=== PATIENT | female | born 1980 | race Two or more races ===

== ENCOUNTER 2021-05-06 09:10 | Emergency (ER) | payer MEDICAID, OTHER ==
[~2021-05-06] VITALS: Ht 149.9 cm; Wt 91.2 kg
[2021-05-06 09:24] VITALS: BP 154/87
--- NOTE | 2021-05-06 09:28 | NUR ---
PT SENT TO LOBBY
[2021-05-06] MEDS ORDERED: NACL 0.9% 1,000 ML IV ONE (09:35)
[2021-05-06] MEDS ORDERED: MORPHINE SULFATE 2 MG/ML SYR IVP ONE (09:35)
[2021-05-06] MEDS ORDERED: KETOROLAC 15 MG/ML VIAL IVP ONE (09:35)
--- NOTE | 2021-05-06 10:10 | NUR ---
PT BACK FROM CT, W/C ASSISTED TO ER BED 2
--- NOTE | 2021-05-06 10:30 | NUR ---
40 y/o female bib self from home, c/o low back right sided pain for 3 days. denies injury, overexertion, or fall at this time. Denies nausea, vomiting, diarrhea. Skin is pink/warm/dry. a&o x4 with even and steady gait. Lungs clear bl, heart rate even and regular. Pt denies any fever, cp, sob, or cough at this time. Patient states pain is 10/10 at this time. Vss. patient positioned for comfort. Hob elevated. Bed down. Ermd made aware of pt. pmh: denies nka
--- NOTE | 2021-05-06 10:30 | NUR ---
pt refused morphine at this time. states it may be too strong, pt also has to drive home.
[2021-05-06 10:37] LABS: APPEARANCE,URINE HAZY (CLEAR); BILIRUBIN,URINE NEGATIVE (NEGATIVE); BLOOD, URINE 2+ (NEGATIVE); COLOR,URINE YELLOW (YELLOW); LEUKOCYTE ESTERASE ,URINE TRACE (NEGATIVE); NITRITE, URINE NEGATIVE (NEGATIVE); UGLUCOSE NEGATIVE (NEGATIVE)
[2021-05-06 11:03] LABS: WBC,URINE 0-5 /HPF (0-5)
--- NOTE | 2021-05-06 11:09 | NUR ---
labs drawn at iv site 20g left ac at this time
--- NOTE | 2021-05-06 11:20 | NUR ---
pt moved to psychiatric at this time
[2021-05-06 11:38] LABS: BASOPHILS # (AUTO) 0.1 K/uL (0.00-0.22); BASOPHILS % (AUTO) 0.7 % (0.0-2.0); EOSINOPHILS # (AUTO) 0.1 K/uL (0-0.4); EOSINOPHILS % (AUTO) 1.6 % (0.0-4.0); HEMATOCRIT 37.9 % (36-48); HEMOGLOBIN 12.7 g/dL (12.0-16.0); LYMPHOCYTES # (AUTO) 1.5 K/uL (2.5-16.5); LYMPHOCYTES % (AUTO) 17.5 % (20.5-51.1); MEAN CORPUSCULAR HEMOGLOBIN 28 pg (27-31); MEAN CORPUSCULAR HGB CONC 33 g/dL (33-37); MEAN CORPUSCULAR VOLUME 83.5 fL (80-94); MONOCYTES # (AUTO) 0.5 K/uL (0.8-1.0); MONOCYTES % (AUTO) 6.2 % (1.7-9.3); NEUTROPHILS # (AUTO) 6.5 K/uL (1.8-7.7); PLATELET COUNT (AUTO) 279 K/uL (140-450); RED BLOOD CELL COUNT(AUTO) 4.55 MIL/uL (4.20-5.40); RED CELL DISTRIBUTION WIDTH 13.9 % (11.6-13.7); WHITE BLOOD COUNT (AUTO) 8.7 K/uL (4.8-10.8)
[2021-05-06 11:59] LABS: ALBUMIN 3.5 g/dL (3.4-5.0); ANION GAP 14.9 (8-16); CARBON DIOXIDE 26.8 mmol/L (21-32); CREATININE 0.6 mg/dL (0.6-1.3); POTASSIUM 3.7 mmol/L (3.5-5.1); TOTAL BILIRUBIN 0.5 mg/dL (0.0-1.0)
[2021-05-06] MEDS ORDERED: IBUP-2213 PO (12:12)
[2021-05-06] MEDS ORDERED: LEVO750T51 PO (12:12)
--- NOTE | 2021-05-15 14:52 | NUR ---
LATE ENTRY- NORMAL SALINE DISCONTINUED AT 1120.
== END 2021-05-06 12:26 | disposition home or self-care (01) ==
LOC: MED 09:10
DX: N39.0 Urinary tract infection, site not specified (principal); R10.11 Right upper quadrant pain; N20.0 Calculus of kidney
CPT/HCPCS: 36415; 74176; 80053; 81001; 81025; 83690; 85025; 96374; 99284; J1885; J7030; 96361; J2270